=== PATIENT | male | born 1945 | race Caucasian/White ===

== ENCOUNTER → 2020-09-02 | Outpatient (CLI) | payer MEDICARE, OTHER ==
--- NOTE | 2020-09-02 15:14 | Diagnostic Imaging Report ---
PROCEDURE: MRI lumbar spine. TECHNIQUE: Multiplanar, multisequence MRI of the lumbar spine was performed without contrast. INDICATION: Low back pain. COMPARISON: No prior studies are available for comparison. FINDINGS: Curvature of the lumbar spine is normal. There is minimal retrolisthesis of L2 on L3 and L3 on L4. Vertebral body marrow signal is normal. No geographic marrow lesion or acute compression fractures identified. There is generalized degenerative disc disease with variable disc space narrowing and desiccation. The conus is unremarkable at the L1 level. T12-L1: Central canal is patent. Bilateral neuroforamina are patent. L1-L2: There is some ligamentous thickening. The central canal is patent. Neuroforamina are patent. L2-L3: There is ligamentous thickening and facet changes with broad-based disc/osteophyte complex. This does create moderate trefoil narrowing of the central canal. There is also significant bilateral lateral recess stenosis. There is moderate bilateral neuroforaminal stenosis. L3-L4: Ligamentous thickening and facet changes with broad-based disc/osteophyte complex is noted. There is moderate trefoil narrowing of the central canal with significant bilateral lateral recess stenosis. [id number] right neuroforaminal narrowing is seen. There is abnormal soft tissue filling the left-sided neuroforamen at this level which may represent extruded disc material. L4-L5: Broad-based disc/osteophyte complex flattens the ventral thecal sac. Central canal is patent but there is significant narrowing of bilateral lateral recesses. There is [id number]-kb-[id number] bilateral neuroforaminal stenosis. L5-S1: Central canal is patent. Neuroforamina are patent. Paraspinous tissues demonstrate multiple cystic lesions involving the bilateral kidneys. IMPRESSION: Multilevel lumbar spondylosis with multilevel central canal, lateral recess, and neuroforaminal stenosis, described level by level above. Abnormal soft tissue is seen filling the left neuroforamen at the L3-L4 level, perhaps left posterolateral extruded disc. No acute compression fractures identified. Dictated by: Dictated on workstation # [id number]
== END ==
LOC: RAD 14:00
PROVIDERS: ATTEND Nurse Practitioner
DX: Z01.89 Encounter for other specified special examinations (principal); M47.816 Spondylosis without myelopathy or radiculopathy, lumbar region; M48.061 Spinal stenosis, lumbar region without neurogenic claudication
CPT/HCPCS: 72148

== ENCOUNTER → 2021-12-26 | Outpatient (CLI) | payer MEDICARE, OTHER ==
[~2021-12-26] MED LIST: ACET-93 PO; ALPR0.25 PO; APIX5TAB PO; ASPI-999 PO; CALC500T47 PO; CARB-270 OP; CARB1TAB19 PO; CARB1TAB41 PO; CARB1TAB44 PO; CHOL400T29 PO; CYAN-23 PO; DIGO250T15 PO; DILT180C85 PO; Gabapentin PO; IBUP-1779 PO; IBUP-2185 PO; LOSA100T57 PO; METO-333 PO; METO50TA15 PO; NIFE10CA44 PO; NIFE30TA89 PO; PEG15DRO9 OU; PRAV10TA PO
== END ==
LOC: CARD 08:30
PROVIDERS: ATTEND Internal Medicine Cardiovascular Disease
DX: I48.0 Paroxysmal atrial fibrillation (principal)
CPT/HCPCS: 93225; 93226

== ENCOUNTER → 2022-01-09 | Outpatient (CLI) | payer OTHER ==
[~2022-01-09] VITALS: Ht 187 cm; Wt 73.0 kg
[~2022-01-09] MED LIST changes: +CATHETER FLUSH 10 ML SYR IV PRN; +REGADENOSON 0.4 MG/5 ML SYR (LEXISCAN) IV ONE
[2022-01-09 13:11] VITALS: BP 218/91
--- NOTE | 2022-01-09 17:19 | STRESS TEST ---
DATE OF SERVICE: 01/09/2022 RESTING AND POST REGADENOSON TECHNETIUM-99M TETROFOSMIN SPECT CT IMAGING ORDERING PHYSICIAN: Dr. Christine. PRIMARY PHYSICIAN: Dr. Edwards. OTHER PHYSICIAN: JONAS Seay. CLINICAL DIAGNOSIS: Wide complex tachycardia. Baseline images were carried out after injection of 10.49 mCi of technetium-99m Tetrofosmin. This was followed by 0.4 mg Regadenoson and 32.3 mCi of technetium-99m Tetrofosmin for stress imaging. The electrocardiogram showed sinus rhythm with right bundle branch block at baseline. Premature atrial contractions were seen. No ventricular arrhythmia was seen during the study. Review of images at rest and following stress indicates a small amount of inferolateral ischemia. Gated images show normal global left ventricular systolic function with normal regional wall motion. Left ventricular ejection fraction is calculated to be 61%. Left ventricular end-diastolic volume is 77 mL. TID is absent (1.1). CONCLUSIONS: 1. This study is suggestive of a small amount of inferolateral ischemia. 2. Normal regional wall motion. 3. Normal global left ventricular systolic function with a calculated ejection fraction of 61%. Job ID: [id number] DocumentID: [id number] Dictated Date: 01/09/2022 15:05:03 Ergonomist Date: 01/09/2022 17:18:28 Dictated By: ALBARO CHRISTINE MD, MA, FACP, FACC,
== END ==
LOC: CARD 12:00
PROVIDERS: ATTEND Internal Medicine Cardiovascular Disease
DX: I35.1 Nonrheumatic aortic (valve) insufficiency (principal); I47.2 Ventricular tachycardia; I51.7 Cardiomegaly
CPT/HCPCS: 78452; 93017; 93306

== ENCOUNTER 2022-01-30 08:02 | Day surgery (SDC) | payer OTHER ==
[2022-01-30] VITALS (10 sets, daily range): BP systolic 125–161; BP diastolic 56–77
[~2022-01-30] VITALS: Ht 188 cm; Wt 78.4 kg
[~2022-01-30 08:02] MED LIST changes: -CATHETER FLUSH 10 ML SYR IV PRN; -REGADENOSON 0.4 MG/5 ML SYR (LEXISCAN) IV ONE
[2022-01-30] MEDS ORDERED: NS IV 1000 ML 1,000 ML ONE (08:14)
[2022-01-30] MEDS ORDERED: LIDOCAINE 1% INJ 50 ML (XYLOCAINE) VIAL ONE (08:14)
[2022-01-30] MEDS ORDERED: HEParin (CATH LAB) 2,000 ML IV ONE (08:14)
[2022-01-30] MEDS ORDERED: NS IV 1000 ML 1,000 ML IV SCH ×2 (08:30→10:30)
[2022-01-30 08:47] LABS: HEMATOCRIT 44 % (40-54); MEAN CORPUSCULAR HEMOGLOBIN 33 pg (25-34); MEAN CORPUSCULAR HGB CONC 34 g/dL (32-36); MEAN CORPUSCULAR VOLUME 96 fL (80-99); MEAN PLATELET VOLUME 10.9 fL (9.0-12.2); PLATELET COUNT 212 10^3/uL (130-400); WHITE BLOOD COUNT 10.1 10^3/uL (4.3-11.0)
[2022-01-30 09:00] LABS: PROTHROMBIN TIME PATIENT 13.6 SEC (12.2-14.7)
[2022-01-30 09:09] LABS: ALANINE AMINOTRANSFERASE < 6 U/L (0-55); ALBUMIN 4.5 GM/DL (3.2-4.5); ALKALINE PHOSPHATASE 62 U/L (40-136); BUN/CREATININE RATIO 13; CARBON DIOXIDE 24 MMOL/L (21-32); CHLORIDE 101 MMOL/L (98-107); CHOLESTEROL 137 MG/DL (< 200); CREATININE SERUM 1.14 MG/DL (0.60-1.30); GFR ESTIMATED 67; GLUCOSE 102 MG/DL (70-105); HDL CHOLESTEROL 40 MG/DL (40-60); POTASSIUM 4.8 MMOL/L (3.6-5.0); SODIUM 135 MMOL/L (135-145); TOTAL PROTEIN 7.1 GM/DL (6.4-8.2); TRIGLYCERIDES 105 MG/DL (<150); VLDL CHOLESTEROL 21 MG/DL (5-40)
[2022-01-30] MEDS ORDERED: fentaNYL INJ 100 MCG/2 ML AMP ONE (09:27)
[2022-01-30] MEDS ORDERED: MIDAZOLAM 5 MG/5 ML (VERSED) VIAL ONE (09:27)
--- NOTE | 2022-01-30 09:29 | Cardiac Procedure Note-CS/ASA ---
Pre-Procedure Note Pre-Op Procedure Note H&P Reviewed The H&P was reviewed, patient examined and no changes noted. Date H&P Reviewed: Jan 30, 2022 Time H&P Reviewed: 09:00 Conscious Sedation Pre-Proced Time 09:00 ASA Score 3 For ASA 3 and 4: Consider anesthesia and medical clearance. Also, for patients with a history of failed moderate sedation consider anesthesia. Airway Lungs Heart ASA score ASA 1: a normal healthy patient ASA 2: a patient with a mild systemic disease (mid diabetes, controlled hypertension, obesity ASA 3: a patient with a severe systemic disease that limits activity (angina, COPD, prior Myocardial infarction) ASA 4: a patient with an incapacitating disease that is a constant threat to life (CHF, renal failure) ASA 5: a moribund patient not expected to survive 24 hrs. (ruptured aneurysm) ASA 6: a declared brain- patient whose organs are being harvested. For emergent operations, add the letter E after the classification Mallampati Classification Grade 2 Sedation Plan Analgesia, Amnesia, Plan communicated to team members, Discussed options with patient/fam, Discussed risks with patient/fam The patient is an appropriate candidate to undergo the planned procedure, sedation, and anesthesia. The patient immediately re-assessed prior to indication. ALBARO WERNER MD FACP FAC CCDS Jan 30, 2022 09:28
[2022-01-30] MEDS ORDERED: POLY30DR6 OU (09:36)
[2022-01-30] MEDS ORDERED: DULO20CA19 PO (09:36)
[2022-01-30] MEDS ORDERED: DIGO250T3 PO (09:36)
[2022-01-30] MEDS ORDERED: CHOL10004 PO (09:36)
[2022-01-30] MEDS ORDERED: APIX5TAB PO (09:36)
[2022-01-30] MEDS ORDERED: PROP10TA8 PO (09:36)
[2022-01-30] MEDS ORDERED: ACET325T38 PO (09:36)
[2022-01-30] MEDS ORDERED: DOXA1TAB2 PO (09:36)
[2022-01-30] MEDS ORDERED: CYAN500T8 PO (09:36)
[2022-01-30] MEDS ORDERED: ROSU5TAB13 PO (09:36)
[2022-01-30] MEDS ORDERED: LACT1CAP62 PO (09:36)
[2022-01-30] MEDS ORDERED: LOSA50TA63 PO (09:36)
--- NOTE | 2022-01-30 10:23 | Discharge Inst-Post CATH ---
Discharge Inst-CATH/EP Post Cardiac Cath/EP D/C Inst Follow Up/Plan f/u with Dr Christine in 3 weeks ACTIVITY * Go Home directly and rest. * Limit activity of the leg (or wrist if it was used) for 7 days including aerobics, swimming, jogging, bicycling, etc. * Restrict stair-climbing for 7 days if possible, if not, climb up with your n on-cath leg, then bring together on the same step. * Avoid lifting, pushing, pulling or excessive movement of the affected ex tremity for 7 days. * Customary sexual activity may be resumed after 2 days-use caution not to use a position that strains or causes pain to the affected extremity. * No driving for 24 hours. * NO SMOKING. * Avoid straining for bowel movements for 7 days. * Gentle walking on level ground is allowed. * Returning to work will depend on the type of procedure and the results. Your doctor will discuss this with you. CALL YOUR DOCTOR FOR ANY OF THE FOLLOWING: *If bleeding from the puncture site occurs- Apply gentle pressure to site with clean cloth and call your doctor or EMS. * If a knot or lump forms under the skin, increases in size, or causes pain. * If bruising appears to be worsening or moving further down your leg instead of disappearing. * Temperature above 101 F. CARE OF YOUR GROIN INCISION; * Bruising or purple discoloration of the skin near the puncture site is common. * You may shower only, no bathtub bathing for 5 days. Be careful to avoid slipping as your leg may feel stiff. * If a closure device was used on your femoral artery, please see the attached guide regarding care of the device and your leg. * Leave dressing on FOR 24 hours. CARE OF YOUR WRIST INCISION; * Bruising or purple discoloration of the skin near the puncture site is common. * You may shower. * DO NOT submerge wrist. * Leave dressing on FOR 24 hours. ALBARO CHRISTINE MD FACP FAC CCDS Jan 30, 2022 10:23
--- NOTE | 2022-01-30 10:23 | Discharge Inst-Cardiology ---
Discharge Inst-Cardiac Discharge Medications Continued Medications: Acetaminophen (Tylenol) 325 Mg Tablet 650 MG PO Q6H PRN for PAIN-MILD (1-4), TAB Apixaban (Eliquis) 5 Mg Tablet 5 MG PO BID, TAB Carbidopa/Levodopa (Carbidopa-Levo ER 50-200 Tab) 1 Each Tablet.er 1 EACH PO 0800,1300,1800, TAB Carbidopa/Levodopa (Carbidopa-Levodopa 25-100 Tab) 1 Each Tablet 1 EACH PO DAILY, TAB Cholecalciferol (Vitamin D3) (Vitamin D3) 25 Mcg Tablet 25 MCG PO DAILY, TAB Cyanocobalamin (Vitamin B-12) (Vitamin B-12) 500 Mcg Tablet 500 MCG PO DAILY, TAB Digoxin (Digoxin) 250 Mcg Tablet 250 MCG PO 1500, TAB Doxazosin Mesylate (Doxazosin Mesylate) 1 Mg Tablet 0.5 MG PO 1500, TAB TAKES (1MG) TABLET LAST FILLED 10/05/2021 #30 60 DAY SUPPLY Duloxetine HCl (Duloxetine HCl) 20 Mg Capsule.dr 20 MG PO BID, CAP Lactobacillus Acidophilus (Probiotic) 1 Each Capsule 1 EACH PO DAILY, CAP Losartan Potassium (Losartan Potassium) 50 Mg Tablet 50 MG PO BID, TAB Polyethylene Glycol 400 (Visine Dry Eye Relief) 30 Ml Drops 1 DROP OU QID PRN for DRY EYES, DROPS Propranolol HCl (Propranolol HCl) 10 Mg Tablet 5 MG PO BID, TAB TAKES (10MG) TABLET Rosuvastatin Calcium (Rosuvastatin Calcium) 5 Mg Tablet 2.5 MG PO 2200, TAB TAKES (5MG) TABLET ALBARO WERNER MD FACP FAC CCDS Jan 30, 2022 10:23
[2022-01-30] MEDS ORDERED: PATIENT MAY USE OWN MEDS, ALL PO SCH (10:30)
--- NOTE | 2022-01-30 14:44 | CARDIAC CATHETERIZATION ---
DATE OF SERVICE: 01/30/2022 CARDIAC CATHETERIZATION REPORT INDICATION FOR PROCEDURE: The patient is a 76-year-old gentleman, who was found to have nonsustained wide complex tachycardia on a Holter monitor study of 12/2021. Cardiac catheterization was recommended. Informed consent was obtained. DESCRIPTION OF PROCEDURE: He was brought to the cardiac catheterization in a fasting state. Right groin was prepared and draped in the usual sterile fashion. Lidocaine 1% was as local anesthesia. Modified Seldinger technique was used to advance a 5-Beninese sheath in the right femoral artery. A 5-Beninese JL4 catheter was used for left coronary angiography, 5-Beninese JR4 catheter was used for right coronary angiography, 5-Beninese pigtail catheter was used for left heart catheterization, and left ventricular angiography. Angiography of the right femoral artery was carried out through the sheath. The site of sheath insertion was proximal deep femoral artery, where the artery was exhibiting considerable spasm versus stenosis. Manual pressure was used to achieve hemostasis following sheath removal. He tolerated the procedure well. HEMODYNAMICS: Left ventricular end-diastolic pressure following coronary angiography was 9 mmHg. There is no significant pressure gradient on pullback across the aortic valve. Ascending aortic pressure was 118/44 with a mean of 72 mmHg. CORONARY ANGIOGRAPHY: Left main coronary artery is free of significant disease. Left ventricular anterior descending artery has mild plaques. It is very small caliber diagonal branch. The left anterior descending has 50% to 60% mid vessel stenosis. A ramus intermedius artery has mild ostial stenosis (less than 30%). Left circumflex artery is nondominant. Right coronary artery is dominant and has multiple plaques. LEFT VENTRICULAR ANGIOGRAPHY: Left ventricular angiography was carried out in the right anterior oblique projection. Global left ventricular systolic function is normal. No regional wall motion abnormalities seen. Left ventricular ejection fraction is approximately 60%. CONCLUSIONS: 1. Coronary artery disease, relatively mild. A very small caliber diagonal branch, left anterior descending artery has 50% to 60% mid vessel stenosis. The rest of the coronary vessels have mild diffuse plaques. 2. Normal global left ventricular systolic function with an ejection fraction of 60%. 3. Normal left ventricular end-diastolic pressure. DISCUSSION AND RECOMMENDATIONS: Based on the results of the study, it appears appropriate to continue a conservative approach. Outpatient followup is advised. Job ID: [id number] DocumentID: [id number] Dictated Date: 01/30/2022 10:18:55 Paper Processing Machine Helper Date: 01/30/2022 14:42:53 Dictated By: ALBARO WERNER MD, MA, FACP, FACC,
== END 2022-01-30 14:20 | disposition home or self-care (01) ==
LOC: CATH 08:02 → SDC 10:31 → CATH 14:20
PROVIDERS: ATTEND Internal Medicine Cardiovascular Disease
DX: I25.10 Atherosclerotic heart disease of native coronary artery without angina pectoris (principal); I48.91 Unspecified atrial fibrillation; I10 Essential (primary) hypertension; G20 Parkinson's disease; T46.1X5A Adverse effect of calcium-channel blockers, initial encounter; I65.23 Occlusion and stenosis of bilateral carotid arteries; I47.2 Ventricular tachycardia; Z79.01 Long term (current) use of anticoagulants; Z79.899 Other long term (current) drug therapy; Z87.891 Personal history of nicotine dependence
CPT/HCPCS: 36415; 80053; 80061; 85027; 85610; 85730; 87081; 93458

== ENCOUNTER 2022-12-22 21:52 | Emergency (ER) | payer OTHER ==
[~2022-12-22] VITALS: Ht 187 cm; Wt 79.3 kg
[~2022-12-22 21:52] MED LIST changes: +ACET325T38 PO; -CARB1TAB19 PO; +CARB1TAB32 PO; +CHOL10004 PO; +CYAN500T8 PO; +DIGO250T3 PO; +DOXA1TAB2 PO; +DULO20CA19 PO; +LACT1CAP62 PO; +LOSA50TA63 PO; +POLY30DR6 OU; +PROP10TA8 PO; +ROSU5TAB13 PO
[2022-12-22] MEDS ORDERED: NS (IVPB) 250 ML IV STA (22:01)
--- NOTE | 2022-12-22 22:04 | ED Cardiac General ---
History of Present Illness General Stated Complaint: A-FIB Source: patient, family Exam Limitations: no limitations History of Present Illness Date Seen by Provider: Dec 22, 2022 Time Seen by Provider: 21:55 Initial Comments 76-year-old male with past medical history of Parkinson's, paroxysmal A. fib on Eliquis, hypertension coming in due to concerns for being in A. fib with rapid heart rate. He felt himself go into earlier today which was short-lived. Occurred again shortly prior to arrival and has not gone away. He has not taken his 10 PM propranolol as of yet. He has not missed any doses of his Eliquis as of yet. Otherwise denying any chest pain, shortness of breath, abdominal pain, nausea, vomiting, diarrhea, focal weakness or numbness, headache, vision changes, or any other concerns. Allergies and Home Medications Allergies Coded Allergies: lisinopril (Verified Allergy, Unknown, 02/16/21) citalopram (Unverified Adverse Reaction, Unknown, 02/16/21) clonidine (Unverified Adverse Reaction, Unknown, 02/16/21) etodolac (Unverified Adverse Reaction, Unknown, 02/16/21) hydrochlorothiazide (Unverified Adverse Reaction, Unknown, 02/16/21) simvastatin (Unverified Adverse Reaction, Unknown, 02/16/21) Patient Home Medication List Home Medication List Reviewed: Yes Acetaminophen (Tylenol) 325 Mg Tablet, 650 MG PO Q6H PRN for PAIN-MILD (1-4), (Reported) Entered as Reported by: GIFTY MANLEY on 01/30/22 0936 Apixaban (Eliquis) 5 Mg Tablet, 5 MG PO BID, (Reported) Entered as Reported by: GIFTY MANLEY on 01/30/22 0936 Carbidopa/Levodopa (Carbidopa-Levo ER 50-200 Tab) 1 Each Tablet.er, 1 EACH PO 0800,1300,1800, (Reported) Entered as Reported by: KOBY FOX on 02/17/21 0352 Carbidopa/Levodopa (Carbidopa-Levodopa 25-100 Tab) 1 Each Tablet, 1 EACH PO DAILY, (Reported) Entered as Reported by: ZARI MONGE on 02/17/21 1035 Cholecalciferol (Vitamin D3) (Vitamin D3) 25 Mcg Tablet, 25 MCG PO DAILY, (Reported) Entered as Reported by: GIFTY MANLEY on 01/30/22935 Cyanocobalamin (Vitamin B-12) (Vitamin B-12) 500 Mcg Tablet, 500 MCG PO DAILY, (Reported) Entered as Reported by: GIFTY MANLEY on 01/30/22935 Digoxin (Digoxin) 250 Mcg Tablet, 250 MCG PO 1500, (Reported) Entered as Reported by: GIFTY MANLEY on 01/30/22935 Doxazosin Mesylate (Doxazosin Mesylate) 1 Mg Tablet, 0.5 MG PO 1500, (Reported) Entered as Reported by: GIFTY MANLEY on 01/30/22935 Duloxetine HCl (Duloxetine HCl) 20 Mg Capsule.dr, 20 MG PO BID, (Reported) Entered as Reported by: GIFTY MANLEY on 01/30/22935 Lactobacillus Acidophilus (Probiotic) 1 Each Capsule, 1 EACH PO DAILY, (Reported) Entered as Reported by: GIFTY MANLEY on 01/30/22935 Losartan Potassium (Losartan Potassium) 50 Mg Tablet, 50 MG PO BID, (Reported) Entered as Reported by: IGFTY MANLEY on 01/30/22935 Polyethylene Glycol 400 (Visine Dry Eye Relief) 30 Ml Drops, 1 DROP OU QID PRN for DRY EYES, (Reported) Entered as Reported by: GIFTY MANLEY on 01/30/22935 Propranolol HCl (Propranolol HCl) 10 Mg Tablet, 5 MG PO BID, (Reported) Entered as Reported by: GIFTY MANLEY on 01/30/22935 Rosuvastatin Calcium (Rosuvastatin Calcium) 5 Mg Tablet, 2.5 MG PO 2200, (Reported) Entered as Reported by: GIFTY MANLEY on 01/30/22935 Review of Systems Review of Systems Constitutional: No fever EENTM: No Symptoms Reported Respiratory: No Symptoms Reported Cardiovascular: See HPI Gastrointestinal: No Symptoms Reported Genitourinary: No Symptoms Reported Musculoskeletal: no symptoms reported Skin: no symptoms reported Psychiatric/Neurological: No Symptoms Reported Past Vyclycy-Nhndwg-Lnugel Hx Patient Social History Tobacco Use?: No Seasonal Allergies Seasonal Allergies: No Past Medical History Surgeries: Yes Eye Surgery, Joint Replacement, Thyroidectomy Respiratory: No Cardiac: Yes Hypertension, Irregular Heartbeat Neurological: Yes Parkinson's Disease Genitourinary: Yes Polycystic Kidney Disease Gastrointestinal: Yes Hemorrhoids Musculoskeletal: Yes (Parkinson's movements) Arthritis Endocrine: Yes (Partial thyroidectomy) HEENT: No Cancer: No Psychosocial: Yes Anxiety, PTSD Integumentary: No Blood Disorders: No Physical Exam Vital Signs Vital Signs - First Documented 12/22/22 21:52 Temp 36.1 Pulse 138 Resp 18 B/P (MAP) 173/98 (123) Pulse Ox 99 O2 Delivery Nasal Cannula Capillary Refill : Height, Weight, BMI Height: '" Weight: lbs. oz. kg; 22.18 BMI Method: General Appearance: No Apparent Distress, WD/WN HEENT: PERRL/EOMI, Normal ENT Inspection, Pharynx Normal Neck: Full Range of Motion, Normal Inspection, Non Tender, Supple Respiratory: Chest Non Tender, Lungs Clear, Normal Breath Sounds, No Accessory Muscle Use, No Respiratory Distress Cardiovascular: Normal Peripheral Pulses, Irregularly Irregular, Tachycardia, Other (Trace lower extremity edema) Gastrointestinal: Normal Bowel Sounds, Non Tender, Soft Extremity: Normal Capillary Refill, Normal Inspection, Normal Range of Motion, Non Tender, No Calf Tenderness, No Pedal Edema Neurologic/Psychiatric: Alert, Oriented x3, No Motor/Sensory Deficits, Normal Mood/Affect Skin: Normal Color, Warm/Dry Lymphatic: No Adenopathy Progress/Results/Core Measures Results/Orders Lab Results Laboratory Tests Test 12/22/22 22:00 Range/Units White Blood Count 8.6 4.3-11.0 10^3/uL Red Blood Count 4.43 4.30-5.52 10^6/uL Hemoglobin 14.2 13.3-17.7 g/dL Hematocrit 41 40-54 % Mean Corpuscular Volume 93 80-99 fL Mean Corpuscular Hemoglobin 32 25-34 pg Mean Corpuscular Hemoglobin Concent 35 32-36 g/dL Red Cell Distribution Width 12.8 10.0-14.5 % Platelet Count 179 130-400 10^3/uL Mean Platelet Volume 11.5 9.0-12.2 fL Immature Granulocyte % (Auto) 0 % Neutrophils (%) (Auto) 69 42-75 % Lymphocytes (%) (Auto) 20 12-44 % Monocytes (%) (Auto) 8 0-12 % Eosinophils (%) (Auto) 3 0-10 % Basophils (%) (Auto) 0 0-10 % Neutrophils # (Auto) 5.9 1.8-7.8 10^3/uL Lymphocytes # (Auto) 1.7 1.0-4.0 10^3/uL Monocytes # (Auto) 0.7 0.0-1.0 10^3/uL Eosinophils # (Auto) 0.3 0.0-0.3 10^3/uL Basophils # (Auto) 0.0 0.0-0.1 10^3/uL Immature Granulocyte # (Auto) 0.0 0.0-0.1 10^3/uL Prothrombin Time 14.1 12.2-14.7 SEC INR Comment 1.0 0.8-1.4 Activated Partial Thromboplast Time 31 24-35 SEC Sodium Level 135 135-145 MMOL/L Potassium Level 4.3 3.6-5.0 MMOL/L Chloride Level 100 98-107 MMOL/L Carbon Dioxide Level 22 21-32 MMOL/L Anion Gap 13 5-14 MMOL/L Blood Urea Nitrogen 23 H 7-18 MG/DL Creatinine 1.08 0.60-1.30 MG/DL Estimat Glomerular Filtration Rate 71 BUN/Creatinine Ratio 21 Glucose Level 114 H 70-105 MG/DL Calcium Level 9.8 8.5-10.1 MG/DL Corrected Calcium 9.4 8.5-10.1 MG/DL Magnesium Level 1.8 1.6-2.4 MG/DL Total Bilirubin 0.6 0.1-1.0 MG/DL Aspartate Amino Transf (AST/SGOT) 18 5-34 U/L Alanine Aminotransferase (ALT/SGPT) < 5 0-55 U/L Alkaline Phosphatase 77 40-136 U/L Troponin I < 0.30 <0.30 NG/ML Pro-B-Type Natriuretic Peptide 3062.0 H <450.0 PG/ML Total Protein 6.5 6.4-8.2 GM/DL Albumin 4.5 3.2-4.5 GM/DL My Orders Orders - ERLIN HINDS MD Cbc With Automated Diff (12/22/22 22:01) Magnesium (12/22/22 22:01) Chest 1 View Ap/Pa Only (12/22/22 22:01) Ekg Tracing (12/22/22 22:01) Comprehensive Metabolic Panel (12/22/22 22:01) Protime With Inr (12/22/22 22:01) Partial Thromboplastin Time (12/22/22 22:01) O2 (12/22/22 22:01) Monitor-Rhythm Ecg Trace Only (12/22/22 22:01) Ed Iv/Invasive Line Start (12/22/22 22:01) Troponin I Fs (12/22/22 22:01) Probnp Fs (12/22/22 22:01) Apixaban Tablet (Eliquis Tablet) (12/22/22 22:15) Diltiazem Injection (Cardizem Injection) (12/22/22 22:15) Ns (Ivpb) (Sodium C... W/Diltiazem Iv Fo (12/22/22 22:01) Ns (Ivpb) (Sodium Chloride 0.9%) (12/22/22 22:01) Ekg Tracing (12/22/22 23:00) Diltiazem Cd 24 Hr Capsule (Cardizem Cd (12/22/22 23:30) Magnesium 1 Gm/100 Ml Ivpb (Magnesium [place] (12/22/22 23:30) Medications Given in ED Current Medications Medications Dose Ordered Sig/Brigido Route Start Time Stop Time Status Last Admin Dose Admin Apixaban 5 mg ONCE ONCE PO 12/22/22 22:15 12/22/22 22:16 DC 12/22/22 22:15 5 MG Diltiazem HCl 20 mg ONCE ONCE IVP 12/22/22 22:15 12/22/22 22:16 DC 12/22/22 22:18 20 MG Diltiazem HCl 120 mg ONCE ONCE PO 12/22/22 23:30 12/22/22 23:31 DC 12/22/22 23:54 120 MG Magnesium Sulfate/ Dextrose 100 ml @ 100 mls/hr ONCE ONCE IV 12/22/22 23:30 12/23/22 00:29 DC 12/22/22 23:54 100 MLS/HR Vital Signs/I&O 12/22/22 12/22/22 12/22/22 21:52 22:18 22:30 Temp 36.1 Pulse 138 140 95 Resp 18 B/P (MAP) 173/98 (123) 155/60 137/61 Pulse Ox 99 O2 Delivery Nasal Cannula Progress Progress Note : Progress Note 76-year-old male presenting due to feeling like he is in A. fib with RVR. The patient was in fact in A. fib with RVR when he was placed on the monitor heart rates in the 130s to 140s. An IV was placed and he was given a gentle bolus of IV fluids of 250 cc which did not change his heart rate. He was then given a bolus of diltiazem followed by a drip. Magnesium low normal at 1.8 so he was given a gram of magnesium as well IV to see if that would help. Heart rate came down nicely, continues to be in A. fib, he is anticoagulated. He is now asym ptomatic and feeling better. I discussed admission to the hospital versus going home. He states he would like to go home since he feels normal. I believe this is appropriate. His labs are otherwise fairly unremarkable including a negative troponin. Chest x-ray ordered and interpreted by me showing no acute abnormalities. EKG interpreted by me showing A. fib with RVR with no STEMI. He never did have any chest pain or shortness of breath. He follows with Dr. Christine, and he states he will call him to schedule an appointment. He was then discharged home in stable condition with strict return precautions. Initial ECG Impression Date: Dec 23, 2022 Initial ECG Impression Time: 22:02 Initial ECG Rate: 108 Initial ECG Rhythm: A Fib/Flutter Comment Narrow QRS, normal axis, PVCs, no STEMI EKG : EKG Time: 23:04 Rate: 96 Rhythm: A Fib/Flutter Comment Narrow QRS, normal axis, no STEMI, PVC present Diagnostic Imaging Diagonstic Imaging: Xray Plain Films/CT/US/NM/MRI: chest Departure Impression Primary Impression: Atrial fibrillation with rapid ventricular response Disposition: 01 HOME, SELF-CARE Condition: Improved Departure-Patient Inst. Decision time for Depature: 00:57 Referrals: SELF,HARDIK SHAHID (PCP) Primary Care Physician JAMARI ROSALES (Family) Primary Care Physician Patient Instructions: Atrial Fibrillation and Atrial Flutter ED Add. Discharge Instructions: You are still in A. fib, but your heart rate is much better controlled. Continue to take your regular medicines tomorrow as prescribed. Call Dr. Christine on Saturday to see if there are any medications he would like to adjust. If you develop any severe chest pain, shortness of breath, or palpitations like your heart is racing and you are very uncomfortable, then please either call your county attorney or come back to the ER. ERLIN HINDS MD Dec 22, 2022 22:04
[2022-12-22] MEDS ORDERED: APIXABAN 5 MG (ELIQUIS) TABLET PO ONE (22:15)
[2022-12-22 22:20] LABS: BASOPHILS % (AUTO) 0 % (0-10); EOSINOPHILS # (AUTO) 0.3 10^3/uL (0.0-0.3); EOSINOPHILS % (AUTO) 3 % (0-10); HEMATOCRIT 41 % (40-54); HEMOGLOBIN 14.2 g/dL (13.3-17.7); LYMPHOCYTES # (AUTO) 1.7 10^3/uL (1.0-4.0); LYMPHOCYTES % (AUTO) 20 % (12-44); MEAN CORPUSCULAR HEMOGLOBIN 32 pg (25-34); MEAN CORPUSCULAR HGB CONC 35 g/dL (32-36); MEAN CORPUSCULAR VOLUME 93 fL (80-99); MEAN PLATELET VOLUME 11.5 fL (9.0-12.2); MONOCYTES # (AUTO) 0.7 10^3/uL (0.0-1.0); MONOCYTES % (AUTO) 8 % (0-12); NEUTROPHILS # (AUTO) 5.9 10^3/uL (1.8-7.8); NEUTROPHILS % (AUTO) 69 % (42-75); PLATELET COUNT 179 10^3/uL (130-400); WHITE BLOOD COUNT 8.6 10^3/uL (4.3-11.0)
[2022-12-22 22:31] LABS: PROTHROMBIN TIME PATIENT 14.1 SEC (12.2-14.7)
[2022-12-22 22:43] LABS: ALKALINE PHOSPHATASE 77 U/L (40-136); BILIRUBIN,TOTAL 0.6 MG/DL (0.1-1.0); BUN/CREATININE RATIO 21; CALCIUM 9.8 MG/DL (8.5-10.1); CARBON DIOXIDE 22 MMOL/L (21-32); CHLORIDE 100 MMOL/L (98-107); CREATININE SERUM 1.08 MG/DL (0.60-1.30); GFR ESTIMATED 71; GLUCOSE 114 MG/DL (70-105); MAGNESIUM 1.8 MG/DL (1.6-2.4); POTASSIUM 4.3 MMOL/L (3.6-5.0); SODIUM 135 MMOL/L (135-145)
[2022-12-22 22:44] LABS: ALANINE AMINOTRANSFERASE < 5 U/L (0-55); ALBUMIN 4.5 GM/DL (3.2-4.5); TOTAL PROTEIN 6.5 GM/DL (6.4-8.2)
[2022-12-22] MEDS ORDERED: MAGNESIUM 1 GM/100 ML IVPB 100 ML IV ONE (23:30)
[2022-12-22] MEDS ORDERED: dilTIAZem120 MG (CARDIZEM CD) CAP PO ONE (23:30)
[2022-12-23 01:10] VITALS: BP 186/74
--- NOTE | 2022-12-23 06:50 | Diagnostic Imaging Report ---
INDICATION: Atrial fibrillation. Comparison is made with prior examination of 02/18/2021. FINDINGS: There is cardiomegaly. There is some bibasilar subsegmental atelectasis and/or pneumonitis. There is no pleural effusion or pneumothorax. The mediastinum is unremarkable. IMPRESSION: Cardiomegaly with some minimal bibasilar subsegmental atelectasis and/or pneumonitis. Dictated by: Dictated on workstation # [id number]
== END 2022-12-23 01:10 | disposition home or self-care (01) ==
LOC: EDUNIT# 21:52 → ER FS 21:57
DX: I48.0 Paroxysmal atrial fibrillation (principal); Z79.01 Long term (current) use of anticoagulants; Z28.310 Unvaccinated for COVID-19
CPT/HCPCS: 36415; 71045; 80053; 83735; 83880; 84484; 85025; 85610; 85730; 93005; 93041; 96361; 96365; 96367; 96368

== ENCOUNTER 2022-12-26 23:05 | Emergency (ER) | payer OTHER ==
[~2022-12-26] VITALS: Ht 187.9 cm; Wt 77.0 kg
[2022-12-26 23:17] VITALS: BP 181/107
[2022-12-26] MEDS ORDERED: hydrALAZINE (APESOLINE) 20 MG/ML VIAL IM STA (23:33)
[2022-12-26] MEDS ORDERED: HYDR-3922 PO (23:41)
--- NOTE | 2022-12-26 23:41 | ED General ---
General Chief Complaint: Cardiac/General Problems Stated Complaint: HIGH HEARTRATE/BP Source of Information: Patient Exam Limitations: No Limitations History of Present Illness Date Seen by Provider: Dec 26, 2022 Time Seen by Provider: 23:20 Initial Comments 76-year-old male presents to the emergency department today for high blood pr essure. He is relatively asymptomatic. He states he occasionally feels his heart race. He does have a history of atrial fibrillation. He was seen here on Saturday for A. fib with rates in the 379805 range. He was given a dose of propranolol as well as some IV magnesium, 250 cc of IV fluids which helped and he was ultimately discharged. Tonight he states he checked his blood pressure this evening and it was elevated. He continued checking it over the course of the next several hours and continued to elevate. He did take an extra dose of propranolol today, totaling 3 doses. He tells me he was told at his last visit to keep his heart rate less than 60 in order to help with his blood pressure. He does seem to be focusing on trying to get his heart rate less than 60. He denies any current palpitations, chest pain, shortness of breath. No headaches, changes in vision. No changes in urination. He does also take losartan as well as doxazosin for blood pressure control. He sees Dr. Christine. Allergies and Home Medications Allergies Coded Allergies: lisinopril (Verified Allergy, Unknown, 02/16/21) citalopram (Unverified Adverse Reaction, Unknown, 02/16/21) clonidine (Unverified Adverse Reaction, Unknown, 02/16/21) etodolac (Unverified Adverse Reaction, Unknown, 02/16/21) hydrochlorothiazide (Unverified Adverse Reaction, Unknown, 02/16/21) simvastatin (Unverified Adverse Reaction, Unknown, 02/16/21) Patient Home Medication List Home Medication List Reviewed: Yes Acetaminophen (Tylenol) 325 Mg Tablet, 650 MG PO Q6H PRN for PAIN-MILD (1-4), (Reported) Entered as Reported by: GIFTY MANLEY on 01/30/22935 Apixaban (Eliquis) 5 Mg Tablet, 5 MG PO BID, (Reported) Entered as Reported by: GIFTY MANLEY on 01/30/22935 Carbidopa/Levodopa (Carbidopa-Levo ER 50-200 Tab) 1 Each Tablet.er, 1 EACH PO 0800,1300,1800, (Reported) Entered as Reported by: KOBY FOX on 02/17/21 0352 Carbidopa/Levodopa (Carbidopa-Levodopa 25-100 Tab) 1 Each Tablet, 1 EACH PO DAILY, (Reported) Entered as Reported by: ZARI MONGE on 02/17/21 1035 Cholecalciferol (Vitamin D3) (Vitamin D3) 25 Mcg Tablet, 25 MCG PO DAILY, (Reported) Entered as Reported by: GIFTY MANLEY on 01/30/22935 Cyanocobalamin (Vitamin B-12) (Vitamin B-12) 500 Mcg Tablet, 500 MCG PO DAILY, (Reported) Entered as Reported by: GIFTY MANLEY on 01/30/22935 Digoxin (Digoxin) 250 Mcg Tablet, 250 MCG PO 1500, (Reported) Entered as Reported by: GIFTY MANLEY on 01/30/22935 Doxazosin Mesylate (Doxazosin Mesylate) 1 Mg Tablet, 0.5 MG PO 1500, (Reported) Entered as Reported by: GIFTY MANLEY on 01/30/22935 Duloxetine HCl (Duloxetine HCl) 20 Mg Capsule.dr, 20 MG PO BID, (Reported) Entered as Reported by: GIFTY MANLEY on 01/30/22935 Hydralazine HCl (Hydralazine HCl) 10 Mg Tablet, 10 MG PO TID Prescribed by: YOUSIF CURRAN MD on 12/26/22 2341 Lactobacillus Acidophilus (Probiotic) 1 Each Capsule, 1 EACH PO DAILY, (Reported) Entered as Reported by: GIFTY MANLEY on 01/30/22935 Losartan Potassium (Losartan Potassium) 50 Mg Tablet, 50 MG PO BID, (Reported) Entered as Reported by: GIFTY MANLEY on 01/30/22935 Polyethylene Glycol 400 (Visine Dry Eye Relief) 30 Ml Drops, 1 DROP OU QID PRN for DRY EYES, (Reported) Entered as Reported by: GIFTY MANLEY on 01/30/22935 Propranolol HCl (Propranolol HCl) 10 Mg Tablet, 5 MG PO BID, (Reported) Entered as Reported by: GIFTY MANLEY on 01/30/22935 Rosuvastatin Calcium (Rosuvastatin Calcium) 5 Mg Tablet, 2.5 MG PO 2200, (Reported) Entered as Reported by: GIFTY MANLEY on 01/30/22 0936 Review of Systems Review of Systems Constitutional: no symptoms reported EENTM: no symptoms reported Respiratory: no symptoms reported Cardiovascular: no symptoms reported Gastrointestinal: no symptoms reported Genitourinary: no symptoms reported Musculoskeletal: no symptoms reported Skin: no symptoms reported Psychiatric/Neurological: No Symptoms Reported Hematologic/Lymphatic: No Symptoms Reported Immunological/Allergic: no symptoms reported Past Sgmazzm-Aafeuc-Zgvhlr Hx Patient Social History Tobacco Use?: No Use of E-Cig and/or Vaping dev: No Substance use?: No Alcohol Use?: No Immunizations Up To Date First/Initial COVID19 Vaccinat: 02/20/21 [facility] Seasonal Allergies Seasonal Allergies: No Past Medical History Surgeries: Yes Eye Surgery, Joint Replacement, Thyroidectomy Respiratory: No Cardiac: Yes Hypertension, Irregular Heartbeat Neurological: Yes Parkinson's Disease Genitourinary: Yes Polycystic Kidney Disease Gastrointestinal: Yes Hemorrhoids Musculoskeletal: Yes (Parkinson's movements) Arthritis Endocrine: Yes (Partial thyroidectomy) HEENT: No Cancer: No Psychosocial: Yes Anxiety, PTSD Integumentary: No Blood Disorders: No Family Medical History Reviewed Nursing Family Hx No Pertinent Family Hx Physical Exam Vital Signs Vital Signs - First Documented 12/26/22 23:17 Temp 35.4 Pulse 82 Resp 16 B/P (MAP) 181/107 (131) Capillary Refill : Height, Weight, BMI Height: '" Weight: lbs. oz. kg; 22.00 BMI Method: General Appearance: No Apparent Distress, WD/WN HEENT: PERRL/EOMI, TMs Normal, Normal ENT Inspection, Pharynx Normal Neck: Full Range of Motion, Normal Inspection, Non Tender, Supple Respiratory: Chest Non Tender, Lungs Clear, Normal Breath Sounds, No Accessory Muscle Use, No Respiratory Distress Cardiovascular: No Murmur, Normal Peripheral Pulses, Irregularly Irregular, Other (Atrial fibrillation with rates between 7090) Gastrointestinal: Normal Bowel Sounds, No Organomegaly, No Pulsatile Mass Back: Normal Inspection, No Vertebral Tenderness Extremity: Normal Capillary Refill, Normal Inspection, Normal Range of Motion, Non Tender, No Calf Tenderness, Other (Trace pretibial edema bilaterally) Neurologic/Psychiatric: Alert, Oriented x3, Other (Slight stutter secondary to Parkinson's.) Skin: Normal Color, Warm/Dry Progress/Results/Core Measures Suspected Sepsis SIRS Temperature: Pulse: Respiratory Rate: Blood Pressure / Mean: Results/Orders My Orders Orders - YOUSIF CURRAN DO Hydralazine Injection (Apresoline Inject (12/26/22 23:33) Vital Signs/I&O 12/26/22 23:17 Temp 35.4 Pulse 82 Resp 16 B/P (MAP) 181/107 (131) Capillary Refill : Departure Communication (Admissions) Patient has SBP 198 on arrival. He is asymptomatic. He seems to be focusing very specifically on keeping his heart rate between 50 and 60 bpm to "help with my blood pressure." His heart rate is well controlled, between 70 and 90. I gave him an IM dose of hydralazine and his blood pressure is started to come down nicely. Back recommend he continue his twice daily dosing of propranolol but focus less on the heart rate as low heart rates could cause him issues in the future. I did advise that if he is having elevated heart rates greater than 100 on a regular basis to talk to Dr. Chauhan to see if he wants to change his propranolol dosing. This is not a current problem for him. I will give her some as needed hydralazine use, only for systolic blood pressures greater than 180. He will be discharged in stable condition. He is not having any chest pain, no indication for an EKG, labs or other emergent testing at this time. Impression Primary Impression: Atrial fibrillation Qualified Codes: I48.0 - Paroxysmal atrial fibrillation Additional Impression: Hypertension Qualified Codes: I10 - Essential (primary) hypertension Disposition: 01 HOME, SELF-CARE Condition: Stable Departure-Patient Inst. Referrals: SELF,HARDIK SHAHID (PCP) Primary Care Physician JAMARI ROSALES (Family) Primary Care Physician Add. Discharge Instructions: You were seen in the emergency department today for elevated blood pressures. You are relatively asymptomatic so I am not as worried about the number short- term however long-term certainly this could continue to be a problem and increase your risk for stroke. I recommend you take the hydralazine 10 mg tablets as prescribed 3 times a day as needed. Only take these if the top number of your blood pressure goes above 180. Return to the emergency room for elevated blood pressures if you are not having chest pain, changes in vision, s evere headaches or decreased urination. Follow-up with Dr. Christine in your primary doctor for further evaluation and treatment recommendations regarding blood pressure and use of your propranolol. All discharge instructions reviewed with patient and/or family. Voiced understanding. Scripts Hydralazine HCl (Hydralazine HCl) 10 Mg Tablet 10 MG PO TID for Systolic Blood Pressure for 30 Days, #30 TAB Prov: YOUSIF CURRAN DO 12/26/22 YOUSIF CURRAN DO Dec 26, 2022 23:41
== END 2022-12-27 00:13 | disposition home or self-care (01) ==
LOC: EDUNIT# 23:05 → ER FS 23:06
DX: I10 Essential (primary) hypertension (principal); I48.91 Unspecified atrial fibrillation; Z79.899 Other long term (current) drug therapy
CPT/HCPCS: 99284

== ENCOUNTER → 2023-06-05 | Outpatient (CLI) | payer OTHER ==
[~2023-06-05] MED LIST changes: +HYDR-3922 PO; -LOSA100T57 PO; +LOSA100T58 PO
--- NOTE | 2023-06-05 15:15 | Diagnostic Imaging Report ---
PROCEDURE: US carotid duplex, bilateral. TECHNIQUE: Multiple real-time grayscale images were obtained over the carotid arteries in various projections, bilaterally. Additional spectral analysis and color Doppler duplex images were also obtained. INDICATION: Z01.89, carotid artery vascular disease. COMPARISON: None available. FINDINGS: Mild plaque is identified within the bilateral carotid arterial systems. There is complete occlusion of the left internal carotid artery. Peak systolic velocity within the left external carotid artery is elevated at 137 cm/s, which greater then doubles the velocity within the left common carotid artery. Peak systolic velocities throughout the right carotid arterial system are within normal limits. Antegrade flow within the bilateral vertebral arteries. IMPRESSION: Complete occlusion of the left internal carotid artery. Greater than 50% stenosis involving the proximal left external carotid artery. No evidence of hemodynamically significant stenosis involving the right carotid arterial system. Antegrade flow within the bilateral vertebral arteries. Parameters based on the consensus panel Huff-[employer] and Doppler ultrasound criteria published October 2003, Radiology, Volume 229. DOPPLER (peak systolic velocity M/S Right Left CCA .78 .31 ICA Proximal .42 OCCLUDED ICA Mid .34 OCCLUDED ICA Distal 1.07 OCCLUDED RATIO 1.37 N/A ECA 1.00 1.37 VERT .65 1.07 Dictated by: Dictated on workstation # [id number]
== END ==
LOC: RAD 13:46
PROVIDERS: ATTEND Family Medicine
DX: Z01.89 Encounter for other specified special examinations (principal); I65.22 Occlusion and stenosis of left carotid artery
CPT/HCPCS: 93880